=== PATIENT | male | born 1955 | race Caucasian/White ===

== ENCOUNTER → 2021-05-14 | Outpatient (CLI) | payer MEDICARE ==
[~2021-05-14] VITALS: Ht 177.8 cm; Wt 91.2 kg
[2021-05-14 09:56] VITALS: BP 123/76
[2021-05-14 11:07] VITALS: BP 119/66
[2021-05-14 11:10] VITALS: BP 120/60
[2021-05-14 11:13] VITALS: BP 131/66
[2021-05-14 11:38] VITALS: BP 125/63
[2021-05-14 12:02] VITALS: BP 116/58
== END | disposition home or self-care (01) ==
LOC: M.ULTRA 04-16 11:00
PROVIDERS: ATTEND Radiology Radiation Oncology
DX: C61 Malignant neoplasm of prostate (principal); R33.9 Retention of urine, unspecified; I25.10 Atherosclerotic heart disease of native coronary artery without angina pectoris; E78.5 Hyperlipidemia, unspecified; Z98.890 Other specified postprocedural states; Z79.899 Other long term (current) drug therapy; Z96.641 Presence of right artificial hip joint; Z91.040 Latex allergy status; Z88.6 Allergy status to analgesic agent